=== PATIENT | male | born 1945 | race Caucasian/White ===

== ENCOUNTER 2018-12-19 13:04 | Emergency (ER) | payer MEDICARE, OTHER ==
[2018-12-19 14:20] LABS: Bilirubin Negative (Negative); Blood, Urine Negative (Negative); Clarity CLEAR (Clear); Glucose, Urine (Dipstick) Negative (Negative); Leukocyte Trace (Negative); Nitrite Negative (Negative); Protein, Urine (Dipstick) Negative (Neg-Trace); Specific Gravity, Urine 1.013 (1.002-1.036); Urobilinogen 0.2 mg/dL (0.2-1.0)
[2018-12-19 14:23] LABS: Bacteria/HPF None Seen HPF (None Seen); Hyaline Casts/LPF 0-3 HYALINE CAST LPF (0-3 Hyaline); Pathc Cast-AUWi Flag 0.43 (0-2.49); RBC/HPF 0-3 HPF (0-3); Squamous Epithelial 0-3 HPF (0-3); WBC/HPF 0-3 HPF (0-3)
[2018-12-19 15:05] LABS: #Lymphocytes 0.6 thou/uL (1.20-3.40); #Neutrophils 8.2 thou/uL (1.40-6.50); %Basophils 0.1 % (0.0-1.0); %Eosinophils 0.3 % (0.0-10.0); %Lymphocytes 6.3 % (21.0-51.0); %Monocytes 10.4 % (0.0-10.0); %Neutrophils 82.9 % (42.0-75.0); Hemoglobin 14.9 g/dL (14.0-18.0); Mean Corpuscular HGB CONC 34.3 g/dL (32.0-36.0); Mean Corpuscular Hemoglobin 33.3 pg (27.0-31.0); Mean Platelet Volume 7.1 fL (7.4-10.4); Platelet Count 284 thou/uL (130-400); RBC Distribution Width 11.6 % (11.5-14.5); Red Blood Cell (RBC) Count 4.48 mill/uL (4.70-6.10); White Blood Cell (WBC) Count 9.9 thou/uL (4.8-10.8)
[2018-12-19 15:28] LABS: ALT (SGPT) 16 U/L (8-55); AST (SGOT) 23 U/L (5-34); Albumin 3.9 g/dL (3.4-4.8); Alkaline Phosphatase 75 U/L (40-150); Anion Gap 19 mmol/L (10-20); BUN (Urea Nitrogen) 32 mg/dL (8.4-25.7); Bilirubin, Total 0.6 mg/dL (0.2-1.2); Calc. Creatinine Clearance 0 mL/min (70-130); Calcium 9.9 mg/dL (7.8-10.44); Carbon Dioxide 16 mmol/L (23-31); Chloride 104 mmol/L (98-107); Estimated GFR-MDRD 14; Globulin 3.5 g/dL (2.4-3.5); Glucose 109 mg/dL (83-110); Potassium 4.2 mmol/L (3.5-5.1); Protein, Total 7.4 g/dL (5.8-8.1); Sodium 135 mmol/L (136-145)
== END 2018-12-19 16:45 | disposition home or self-care (01) ==
LOC: ERS 13:04
DX: S01.00XA Unspecified open wound of scalp, initial encounter (principal); R33.9 Retention of urine, unspecified; R94.4 Abnormal results of kidney function studies; L08.9 Local infection of the skin and subcutaneous tissue, unspecified; X58.XXXA Exposure to other specified factors, initial encounter
CPT/HCPCS: 36415; 51702; 80053; 81003; 81015; 83605; 85025; 87070; 87077; 87086; 87186; 87205

== ENCOUNTER 2018-12-28 20:12 | Emergency (ER) | payer MEDICARE, OTHER ==
[2018-12-28 21:22] LABS: Bilirubin Negative (Negative); Blood, Urine Large (Negative); Clarity CLOUDY (Clear); Glucose, Urine (Dipstick) Negative (Negative); Leukocyte Large (Negative); Nitrite Negative (Negative); Protein, Urine (Dipstick) Negative (Neg-Trace); Urobilinogen 0.2 mg/dL (0.2-1.0); pH, Urine 5.5 (5.0-9.0)
[2018-12-28 21:24] LABS: Bacteria/HPF 1+ HPF (None Seen); Hyaline Casts/LPF 0-3 HYALINE CAST LPF (0-3 Hyaline); Pathc Cast-AUWi Flag 0.29 (0-2.49); Squamous Epithelial None Seen HPF (0-3)
[2018-12-28] MEDS ORDERED: Tamsulosin HCl 0.4 MG CAP PO SCH (22:00)
== END 2018-12-28 22:27 | disposition home or self-care (01) ==
LOC: ERS 20:12
DX: R33.9 Retention of urine, unspecified (principal)
CPT/HCPCS: 51703; 81003; 81015; 87077; 87086; 87186